=== PATIENT | male | born 1950 | race American Indian/Alaskan Native ===

== ENCOUNTER 2017-04-21 16:12 | Emergency (ER) | payer MEDICARE ==
[2017-04-21 17:19] VITALS: BP 129/87
--- NOTE | 2017-04-21 18:32 | XRay Report ---
FINAL REPORT EXAM: XR WRIST 3+V RT HISTORY: injury pain TECHNIQUE: Right wrist 3 views PRIORS: None. FINDINGS: Carpal bones maintain normal alignment. No acute fracture is identified. The distal radius and ulna are intact. IMPRESSION: Negative wrist series
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
[2017-04-21] MEDS ORDERED: MOTRIN PO ONE ×2 (22:41→22:48)
== END 2017-04-21 22:59 | disposition home or self-care (01) ==
LOC: ED 16:12
DX: S93.401A Sprain of unspecified ligament of right ankle, initial encounter (principal); S63.501A Unspecified sprain of right wrist, initial encounter; S20.20XA Contusion of thorax, unspecified, initial encounter; F17.200 Nicotine dependence, unspecified, uncomplicated; Z91.018 Allergy to other foods; V29.9XXA Motorcycle rider (driver) (passenger) injured in unspecified traffic accident, initial encounter; Y93.89 Activity, other specified; Y92.89 Other specified places as the place of occurrence of the external cause; Y99.8 Other external cause status
CPT/HCPCS: 99283

== ENCOUNTER 2021-05-22 19:28 | Emergency (ER) | payer MEDICARE | END 2021-05-23 00:50 | disposition left against medical advice (07) | LOC: ED 19:28 | DX: R52 Pain, unspecified (principal); Z53.21 Procedure and treatment not carried out due to patient leaving prior to being seen by health care provider ==